=== PATIENT | female | born 1980 | race Two or more races ===

== ENCOUNTER 2024-10-01 21:09 | Emergency (ER) | payer MEDICAID, SELFPAY ==
[2024-10-01 21:10] VITALS: BMI 30.7
[2024-10-01 21:38] VITALS: BP 150/84; PULSE 68; RESP 18; TEMP 36.8; O2SAT 98
--- NOTE | 2024-10-01 21:45 | XR_ITS ---
Examination: PA lateral chest 2 views TECHNIQUE: Upright PA and lateral chest 2 views Date time: October 01, 2024, 220 hours INDICATIONS: Weakness and dizziness beginning 2 days ago FINDINGS: Normal heart size Lungs are clear. The osseous structures are intact IMPRESSION: No active disease
--- NOTE | 2024-10-01 21:47 | PD.EDRME ---
Rapid Medical Screening Exam RME Arrival date/time: 10/01/24 21:09 44 year old female present to ED for c/o dizziness, leg swelling weakness I have greeted and performed a focused initial assessment of this patient. A comprehensive ED assessment and evaluation of the patient, analysis of all test results, and completion of the medical decision making process will be conducted by additional ED providers. Chief Complaint: Headache Time Seen by Provider: 10/01/24 21:14 Vital signs: Vital Signs Temperature 98.2 F 10/01/24 21:38 Pulse Rate 68 10/01/24 21:38 Respiratory Rate 18 10/01/24 21:38 Blood Pressure 150/84 H 10/01/24 21:38 Pulse Oximetry (%) 98 10/01/24 21:38 Oxygen Delivery Method Room Air 10/01/24 21:38
[2024-10-01 22:43] LABS: Basophils # (Auto) 0.1 Thou/mm3 (0.0-0.2); Basophils % (Auto) 1 % (0-2.5); Eosinophils # (Auto) 0.5 Thou/mm3 (0.0-0.5); Eosinophils % (Auto) 6 % (0-10); Hematocrit 37.6 % (36.0-46.0); Hemoglobin 12.8 g/dL (12.0-16.0); Immature Granulocytes % (Auto) 0 % (0-0); Immature Granulocytes Auto 0.02 Thou/mm3 (0.00-0.00); Lymphocytes % (Auto) 35 % (10-50); Mean Corpuscular Hemoglobin 29.1 pg (25.0-35.0); Mean Corpuscular Volume 86 fL (80-100); Monocytes # (Auto) 0.6 Thou/mm3 (0.0-0.8); Monocytes % (Auto) 7 % (0-12); Neutrophils # (Auto) 4.3 Thou/mm3 (1.8-7.7); Neutrophils % (Auto) 51 % (37-80); Nucleated Red Blood Cell % 0 /100 WBC (0); Platelet Count 245 Thou/mm3 (140-440); White Blood Count 8.5 Thou/mm3 (3.6-11.0)
[2024-10-01 23:03] LABS: HCG,Qualitative Serum Negative
[2024-10-01 23:06] LABS: Alanine Aminotransferase 13 U/L (10-49); Albumin, Serum 4.3 gm/dL (3.5-5.0); Albumin/Globulin Ratio 1.6 (1.2-2.2); Alkaline Phosphatase 94 U/L (46-116); Anion Gap 3 (7-16); Aspartate Amino Transferase 17 U/L (0-34); BUN/Creatinine Ratio 12 Ratio (12-20); Bilirubin,Total 0.2 mg/dL (0.3-1.2); Blood Urea Nitrogen 12 mg/dL (9-23); Calcium 9.2 mg/dL (8.3-10.6); Calcium (Corrected) 9.2 mg/dL (8.5-10.1); Carbon Dioxide 26.6 mMol/L (20.0-31.0); Chloride 107 mMol/L (98-107); Estimated Creatinine Clearance 77.7 mL/min (>60); Globulin 2.7 gm/dL (2.3-3.5); Glucose 99 mg/dL (74-106); Lipase 48 U/L (12-53); Osmolality,Calculated 273 (275-295); Potassium 4.1 mMol/L (3.4-5.1); Sodium 137 mMol/L (136-145); Troponin I < 0.002 ng/mL (0.0-0.045); eGFR > 60 See Note
--- NOTE | 2024-10-02 02:36 | PD.EDHA ---
ED Headache RME/HPI General Chief Complaint: Headache Stated Complaint: HEADACHE, NOSE BLEEDS Time Seen by Provider: 10/01/24 21:14 Arrival date/time: 10/01/24 21:09 RME / HPI RME / HPI Narrative: 10/01/24 21:09 44 year old female present to ED for c/o dizziness, leg swelling weakness I have greeted and performed a focused initial assessment of this patient. A comprehensive ED assessment and evaluation of the patient, analysis of all test results, and completion of the medical decision making process will be conducted by additional ED providers. This section includes all my notes and documentations, including HPI, PE, and ED course. Sourav Young MD HPI: 44 y/o female presents to ED c/o on and off headache and nosebleeds x several days. States sometimes she feels tingling and numbness in her hands and her feet can swell up. Patient denies history of HTN. Also denies chest pain. No other complaints. ROS: All negative except as documented in HPI. Physical Exam: General:? Alert and oriented.? No acute distress.?? Eyes:? Conjunctivae and lids clear.? EOMI.? PERRL. ENT:? No nasal congestion.? Neck:? Supple.? No carotid bruit.? No JVD. Heart:? RRR.? Lungs:? No respiratory distress.? Good air movement.? No rhonchi, wheezing, rales.?? Legs:? No clubbing, cyanosis, edema.? Skin:? Warm and dry.?? Neuro:? Alert and oriented X 3.? Cranial Nerves II-XII grossly intact.? No peripheral motor deficits. I reviewed all diagnostic test results. My interpretation of the EKG is sinus rhythm with no acute ST?T changes. My interpretation of the chest x-ray is NAD. Blood tests unremarkable. At this point, diagnoses include Hyptertension. Treatment here included Clonidine. Significant improvement noted. Recommended more outpatient care. Based on my best medical judgment, made decision no further evaluation or treatment indicated at this time. Patient understands and agrees to the discharge instructions customized and printed, see below. Discharge Instructions from Dr. Young printed for you: 1. After evaluation, there is no life-threatening condition. Such as heart attack or pneumothorax (collapsed lung). 2. But we need to lower BP to live longer. 3. Take clonidine 0.1 mg pills as needed based on SBP (higher number of BP). Check your BP twice daily (about 12 hours apart). If SBP > 140, take one pill. If SBP > 160, take two pills. If SBP > 180, take three pills. If SBP > 200, take four pills. 4. See a private doctor on 10/03/2024 for recheck and further care. Ask to help you stay healthy, with good BP management and with regular physical exam and health maintenance. 5. Seek immediate medical care with worsening or with any concerns. Sourav Young MD Related Data Previous Rx's ?Medication ?Instructions ?Recorded clonidine HCl 0.1 mg tablet 0.1 mg PO BID #60 tabs 10/02/24 Allergies Allergy/AdvReac Type Severity Reaction Status Date / Time No Known Allergies Allergy Verified 10/01/24 21:12 Past Medical History Past Medical History REPRODUCTIVE: Positive Previous Pregnancies OTHER HISTORY: Positive Hospitalization Family History FAMILY HISTORY: Positive Family Cancer (mom and dad) and Family Anesthesia Reaction (mom gets seizures) ED Exam Narrative Physical exam: Refer to HPI above Course Course Course Narrative: CXR is ordered for determining the etiology of shortness of breath. Quality Measures none Orders Category Date Time Status Bedside COVID-19 Antigen Test NOW Care 10/01/24 21:45 Active Bedside Influenza A&B Antigen Test NOW Care 10/01/24 21:46 Completed EKG (ED ONLY) *Do not use* NOW Care 10/01/24 21:46 Completed EKG (ED Only) Stat Exams 10/01/24 21:45 Ordered XR chest 2V Stat Exams 10/01/24 21:45 Completed CBC Stat Lab 10/01/24 22:33 Completed CMP [Comprehensive Metabolic Panel] Stat Lab 10/01/24 22:33 Completed HCG,Qualitative Serum Stat Lab 10/01/24 22:33 Completed Lipase Stat Lab 10/01/24 22:33 Completed Troponin I Stat Lab 10/01/24 22:33 Completed cloNIDine HCL [Catapres] Med 10/02/24 02:36 Once 0.2 mg PO X1 ONE Vital Signs Vital signs: Vital Signs Temperature 98.2 F 10/01/24 21:38 Pulse Rate 68 10/01/24 21:38 Respiratory Rate 18 10/01/24 21:38 Blood Pressure 150/84 H 10/01/24 21:38 Pulse Oximetry (%) 98 10/01/24 21:38 Oxygen Delivery Method Room Air 10/01/24 21:38 Headache MDM Narrative MDM Narrative:: Scribe Attestation: I, Yoselin Elliott, am scribing for and in the presence of Dr. Young. Provider Notation: Although this document has been carefully reviewed, there may still be some phonetic and other typographical errors.? These errors are purely grammatical due to imperfections in the software program and should not be construed in any way to? compromise the substance of the patient's medical care during this visit. 44 y/o female presents to ED c/o headache and nosebleeds x 2 days. Patient data External records reviewed:: [facility] previous records (No recent ED records available for review.) Clinical information provided by:: patient Social determinants that could affect healthcare access:: none Patient has the following chronic illnesses:: None reported. How is presenting disease/condition affected by chronic disease/condition?: no chronic disease Evaluation data The following diagnostics were reviewed and interpreted by me:: lab results, radiology exam(s) and EKG tracing(s) Lab and/or radiology exams considered but not ordered:: None Interpretation Summary: I reviewed all diagnostic test results. My interpretation of the EKG is sinus rhythm with no acute ST?T changes. My interpretation of the chest x-ray is NAD. Blood tests unremarkable. Medications / Prescriptions Medications or Prescriptions considered but not ordered:: None Medication administrations:: Medication Administration History Clonidine (Clonidine Hcl 0.1 Mg Tablet) 0.2 mg PO X1 ONE Stop: 10/02/24 02:37 Clonidine Consultations Consultation(s) initiated? (list below): No Diagnosis Differential diagnosis headache: migraine, tension headache, headache, sinusitis and other (HTN, IA) Most likely diagnosis given after review of the tests above:: Hypertension Admission Indicated Admission indicated?: not indicated Explain why admission is indicated or not indicated:: With significant improvement, there was no indication for admission. Admission Request Was there a request for admission?: No Disposition Plan Disposition Plan: Discharge Discharge Attestation Discharge Attestation: The patient and all family members were given an opportunity to ask questions and understood the discharge instructions. Discharge instructions specifically effects, indications for sooner follow up or return to the emergency department, and the expected course of current diagnosis. Patient condition: Stable Discharge Plan Plan Patient Disposition: HOME (Self Care) Prescriptions/Referrals Prescriptions/Med Rec: New clonidine HCl 0.1 mg tablet 0.1 mg PO BID Qty: 60 0RF Referrals: Tania Vega PA-C [Primary Care Provider] - In 1 week Problem List Clinical Impression: Hypertension Patient/Caregiver Discharge Instructions Discharge Activity: activity as tolerated Education Materials: ED Hypertension, New (Begin Treatment) Additional Instructions: Discharge Instructions from Dr. Young printed for you: 1. After evaluation, there is no life-threatening condition. Such as heart attack or pneumothorax (collapsed lung). 2. But we need to lower BP to live longer. 3. Take clonidine 0.1 mg pills as needed based on SBP (higher number of BP). Check your BP twice daily (about 12 hours apart). If SBP > 140, take one pill. If SBP > 160, take two pills. If SBP > 180, take three pills. If SBP > 200, take four pills. 4. See a private doctor on 10/03/2024 for recheck and further care. Ask to help you stay healthy, with good BP management and with regular physical exam and health maintenance. 5. Seek immediate medical care with worsening or with any concerns. Print Language: [place] Stand Alone Forms: [employer] Award Info., Patient Portal Info Letter
[2024-10-02 02:47] VITALS: BP 161/92; PULSE 69; RESP 17; TEMP 36.8; O2SAT 98
[2024-10-02 03:04] VITALS: BP 161/92; PULSE 69
[2024-10-02] MEDS: cloNIDine HCL 0.1 MG TABLET 0.2 MG PO (03:04)
== END 2024-10-02 03:10 | disposition home or self-care (01) ==
PROVIDERS: Physician Assistant; Emergency Provider Emergency Medicine; PCP Physician Assistant
DX: R51.9 Headache, unspecified (principal); I10 Essential (primary) hypertension
CPT/HCPCS: 36415; 71046; 80053; 83690; 84484; 84703; 85025; 87400; 87811; 93005; 99283; A9270